=== PATIENT | female | born 1990 | race Two or more races ===

== ENCOUNTER → 2016-09-16 | Outpatient (CLI) | payer OTHER ==
--- NOTE | 2016-09-16 16:42 | RAD ---
Obstetrical ultrasound, 09/16/2016: History: Small for dates Transabdominal scans were obtained. There is a single intrauterine fetus in a breech orientation. The biparietal diameter measures 3.4 cm compatible with a gestational age of 16-17 weeks. The average gestational age based on all of the measurements is 16 weeks and 1 day yielding a sonographic EDC of 03/02/2017. This correlates well with the EDC of 03/05/2017 established on the original ultrasound exam of 07/18/2016. Normal activity and heart motion were seen. The heart rate is 155 bpm. No specific abnormality is detected. A normal amount of amniotic fluid is evident with GEORGIE calculated at 11.7. The placenta lies anteriorly and extends low near the cervical region. The cervix was not clearly delineated on today's scans. There is apparent myometrial thickening anteriorly in the lower uterine segment on several of these images. The senior nuclear medicine technologist did not recognize the presence of mass in this region during the scanning process. This may have been a transient uterine contraction. IMPRESSION: 1. Single viable uterine fetus of 16-17 weeks gestational age which has demonstrated normal interval growth since 03/05/2017. 2. Low-lying placenta. 3. Myometrial thickening anteriorly in the lower uterine segment suggesting a uterine contraction versus a possible fibroid. 4. Sonographic follow-up is suggested.
== END | disposition home or self-care (01) ==
LOC: US 10:11
PROVIDERS: ATTEND Obstetrics & Gynecology
DX: O36.5920 Maternal care for other known or suspected poor fetal growth, second trimester, not applicable or unspecified (principal); O44.42 Low lying placenta NOS or without hemorrhage, second trimester; Z3A.14 14 weeks gestation of pregnancy
CPT/HCPCS: 76805

== ENCOUNTER → 2016-10-22 | Outpatient (CLI) | payer OTHER ==
--- NOTE | 2016-10-22 15:57 | RAD ---
Obstetrical ultrasound, 10/22/2016: History: Pelvic pain, second trimester bleeding Transabdominal scans were obtained. There is a single intrauterine fetus in a cephalic orientation. The biparietal diameter measures 5 cm compatible with a gestational age of 21 weeks. The average gestational age based on all of the measurements is 21 weeks and 4 days showing a sonographic EDC of 02/28/2017. This correlates well with the EDC of 03/05/2017 established on the original ultrasound exam of 07/18/2016. Normal activity and heart motion were seen. The heart rate is 155 bpm. No specific abnormality is detected. The placenta lies anteriorly with no evidence of a placenta previa. No periplacental hemorrhage is seen. The cervix was not optimally defined but does not appear to be thinned. The patient refused transvaginal scanning. A normal amount of amniotic fluid is present with the amniotic fluid index measured at 16.7. IMPRESSION: Single viable intrauterine fetus of 21-22 weeks gestational age as described above, demonstrating normal interval growth since 07/18/2016.
== END | disposition home or self-care (01) ==
LOC: US 12:31
PROVIDERS: ATTEND Family Medicine
DX: R10.2 Pelvic and perineal pain (principal); O46.92 Antepartum hemorrhage, unspecified, second trimester
CPT/HCPCS: 76805

== ENCOUNTER → 2016-12-25 | Outpatient (CLI) | payer OTHER ==
--- NOTE | 2016-12-25 11:36 | RAD ---
Indication large for dates. Obstetrical ultrasound examination was performed. Note is made of a previous examination 2 months ago. There is a single viable IUP. heart rate 169 was documented. The current presentation is cephalic. The biparietal diameter of 7.7 cm, head circumference of 28 cm, abdominal circumference of 25.2 cm and femoral length of 6.2 cm are compatible with a gestational age of approximately 31 weeks. The current examination would suggest an expected date of confinement of 02/27/2017 which is in general agreement with the study 2 months ago. (EDC associated with that examination was 03/05/2017). The estimated weight is approximately 1600 g. The amount of amniotic fluid is normal and the calculated index is 12. The placenta is predominantly anterior. There was a 4 chambered heart. No definite anomalies were seen. The brain was not optimally visualized because of positioning. IMPRESSION: Single viable intrauterine fetus of approximately 31 weeks gestation.
== END | disposition home or self-care (01) ==
LOC: US 09:45
PROVIDERS: ATTEND Family Medicine
DX: P08.1 Other heavy for gestational age newborn (principal)
CPT/HCPCS: 76805

== ENCOUNTER 2017-01-27 18:26 | Inpatient (IN) | payer OTHER ==
[2017-01-27] MEDS ORDERED: fentaNYL PF VIAL 100 MCG/2 ML VIAL IV PRN (19:45)
[2017-01-27] MEDS ORDERED: 0.9 % SODIUM CHLORIDE 10 ML DISP.SYRIN. IV PRN (19:45)
[2017-01-27] MEDS ORDERED: IBUPROFEN 800 MG TABLET. PO PRN (19:45)
[2017-01-27] MEDS ORDERED: LIDOCAINE 1% PF 30 ML VIAL. INJ PRN (19:45)
[2017-01-27] MEDS ORDERED: IV RINGERS,LACTATED 1000ML 1,000 ML IV SCH (19:45)
[2017-01-27] MEDS ORDERED: OXYTOCIN 30 UNIT/500 ML PREMIX 500 ML IV PRN (19:45)
[2017-01-27 19:57] LABS: HEMATOCRIT 33.4 % (36.0-47.0); HEMOGLOBIN 10.9 g/dL (12.0-15.5); RED BLOOD COUNT 4.24 x10^6/uL (3.50-5.40); RED CELL DISTRIBUTION WIDTH 16.2 % (11.5-14.5); WHITE BLOOD COUNT 7.3 x10^3/uL (4.0-11.0)
[2017-01-27] MEDS ORDERED: AMPICILLIN SODIUM 2 GM in IV NORMAL SALINE 100ML 100 ML IV ONE (20:00)
[2017-01-27 20:40] LABS: NEG OBC AMNIO NEG; POS OBC AMNIO POS
[2017-01-28] MEDS ORDERED: AMPICILLIN SODIUM 1 GM in IV NORMAL SALINE 50ML 50 ML IV SCH (00:01)
[2017-02-23] MEDS ORDERED: OXYC-323 PO (10:52)
[2017-02-23] MEDS ORDERED: NAPR500T3 PO (10:52)
--- NOTE | 2017-03-14 16:43 | SSS ---
ADMIT DATE: 01/27/2017 CLINICAL COURSE: This patient is a 26-year-old female with EDC of 03/05/2017, seen on 01/27/2017 by OB floor with suspicion of ruptured membranes. The patient had no fluid noted by nursing staff and had negative Amnisure as well as a CBC showing no evidence of infection and mild anemia. She was deemed not to be on labor with no changes in cervical exam. The patient was discharged from floor per routine with nursing assessment documented and told to follow up in the clinic within 24-48 hours for continued care and evaluation. MASSIMO VICK MD DR: BENJI/leyla JOB#: [id number] / [id number]
== END 2017-01-27 21:24 | disposition home or self-care (01) | DRG 780 ==
LOC: 3 SO LND 18:26 → OBSVTOIN 18:26
PROVIDERS: ADMIT Family Medicine; ATTEND Family Medicine
DX: O47.03 False labor before 37 completed weeks of gestation, third trimester (principal); O46.93 Antepartum hemorrhage, unspecified, third trimester; Z3A.35 35 weeks gestation of pregnancy
CPT/HCPCS: 36415; 84112; 85027; 86850; 86900; 86901; C1887; J7120

== ENCOUNTER 2017-02-03 10:29 | Inpatient (IN) | payer OTHER ==
--- NOTE | 2017-02-03 12:17 | RAD ---
Indication:. Left-sided pain. Grayscale images of the abdomen were obtained. The examination is limited by virtue of patient body habitus. Comparison none Liver:There is some increased attenuation of the ultrasound beam by the liver compatible with fatty infiltration. A focal mass lesion is not seen and the visualized liver Gallbladder:There is cholelithiasis. No wall thickening is seen. The common bile duct diameter of 4 to 5 mm is within normal limits Spleen:Not optimally visualized but grossly normal Pancreas:The portion of the head and proximal body of the pancreas which is seen appears unremarkable. The entire body and tail were not seen. Kidneys:The right kidney is normal. No hydronephrosis or mass is seen. The left kidney contains a hypoechoic 2 cm mass in the inferior pole compatible with a cyst. No significant hydronephrosis is seen Abdominal aorta and IVC:With the most proximal abdominal aorta was seen. It appeared normal. The mid and distal abdominal aorta were obscured by gas. The visualized inferior vena cava appeared normal Ancillary findings:A viable intrauterine fetus was noted during the exam Impression:Fatty infiltration of the liver. Cholelithiasis. Incomplete visualization of midline structures Left renal cyst
[2017-02-23] MEDS ORDERED: NAPR500T3 PO (10:52)
[2017-02-23] MEDS ORDERED: OXYC-323 PO (10:52)
== END 2017-02-03 14:40 | disposition home or self-care (01) | DRG 781 ==
LOC: US 10:29 → 3 SO LND 11:20
PROVIDERS: ADMIT Family Medicine; ATTEND Family Medicine
DX: O26.613 Liver and biliary tract disorders in pregnancy, third trimester (principal); O26.833 Pregnancy related renal disease, third trimester; Q61.00 Congenital renal cyst, unspecified; O99.613 Diseases of the digestive system complicating pregnancy, third trimester; K76.0 Fatty (change of) liver, not elsewhere classified; Z3A.39 39 weeks gestation of pregnancy
CPT/HCPCS: 76700

== ENCOUNTER 2017-10-21 17:35 | Emergency (ER) | payer SELFPAY, OTHER ==
[2017-10-21] MEDS: IPRATRPIUM/ALBUTEROL 0.5/2.5MG 3 ML NEBU. NEB ×2 (17:51→18:20)
[2017-10-21] MEDS: predniSONE 10 MG TABLET PO (18:13)
== END 2017-10-21 18:58 | disposition home or self-care (01) ==
LOC: ER 17:35
DX: J45.901 Unspecified asthma with (acute) exacerbation (principal)
CPT/HCPCS: 94640; 99284-25; J7512; J7620

== ENCOUNTER 2018-10-26 08:16 | Emergency (ER) | payer BC ==
[~2018-10-26] VITALS: Ht 167.6 cm; Wt 140.6 kg
[~2018-10-26 08:16] MED LIST: ALBU2.5V8 INH; NAPR-514 PO; OXYC1TAB15 PO; PRED20TA PO
[2018-10-26 08:25] VITALS: BP 152/72
[2018-10-26] MEDS ORDERED: AMOX875T PO (08:55)
[2018-10-26] MEDS ORDERED: PRED50TA PO (08:55)
--- NOTE | 2018-10-26 08:55 | PHYS DOC ---
Past Medical History Past Medical History: Asthma, Depression Past Surgical History: Tubal ligation Alcohol Use: None Drug Use: None Adult General Chief Complaint Chief Complaint: SORE THROAT HPI HPI Patient is a 27 year old female who presents complaining of a sore throat and bilateral ear pain that began 5 days ago. Patient states she has tried over-the- counter remedies including Motrin with relief for fever but not for her symptoms. She is also complaining of a slight cough. Review of Systems Review of Systems Constitutional: Denies fever or chills [] Eyes: Denies change in visual acuity, redness, or eye pain [] HENT: reports sore throat and bilateral ear pain. Denies nasal congestion Respiratory: Reports cough, denies Shortness of breath [] Cardiovascular: No additional information not addressed in HPI [] GI: Denies abdominal pain, nausea, vomiting, bloody stools or diarrhea [] : Denies dysuria or hematuria [] Musculoskeletal: Denies back pain or joint pain [] Integument: Denies rash or skin lesions [] Neurologic: Denies headache, focal weakness or sensory changes [] All other systems were reviewed and found to be within normal limits, except as documented in this note. Allergies Allergies Allergies Coded Allergies Type Severity Reaction Last Updated Verified No Known Drug Allergies 02/22/17 No Physical Exam Physical Exam Constitutional: Well developed, well nourished, no acute distress, non-toxic appearance. [] HENT: Normocephalic, atraumatic, bilateral external ears normal, oropharynx moist, no oral exudates, nose normal. [] +3 tonsils with mild erythema, midline, no exudate. +2 anterior cervical adenopathy Bilateral TM are mildly injected Eyes: PERRLA, EOMI, conjunctiva normal, no discharge. [] Neck: Normal range of motion, no tenderness, supple, no stridor. [] Cardiovascular:Heart rate regular rhythm, no murmur [] Lungs & Thorax: Bilateral breath sounds clear to auscultation [] Abdomen: Bowel sounds normal, soft, no tenderness, no masses, no pulsatile masses. [] Skin: Warm, dry, no erythema, no rash. [] Back: No tenderness, no CVA tenderness. [] Extremities: No tenderness, no cyanosis, no clubbing, ROM intact, no edema. [] Neurologic: Alert and oriented X 3, normal motor function, normal sensory function, no focal deficits noted. [] Psychologic: Affect normal, judgement normal, mood normal. [] Current Patient Data Vital Signs Vital Signs Date Time Temp Pulse Resp B/P (MAP) Pulse Ox O2 Delivery O2 Flow Rate FiO2 10/26/18 08:25 98.3 98 20 152/72 (98) 100 Room Air 98.3 EKG EKG [] Radiology/Procedures Radiology/Procedures [] Course & Med Decision Making Course & Med Decision Making Pertinent Labs and Imaging studies reviewed. (See chart for details) Patient has otitis media and pharyngitis episodes of fevers. Discharged with amoxicillin. Tylenol/ Motrin for pain, gargles recommended. Follow-up with PCP in 1-2 weeks. Dragon Disclaimer Dragon Disclaimer This electronic medical record was generated, in whole or in part, using a voice recognition dictation system. Departure Departure Impression: Primary Impression: Otitis media Additional Impressions: Pharyngitis, acute Fever Cough Disposition: HOME, SELF-CARE Condition: STABLE Referrals: MASSIMO VICK MD (PCP) follow up in 1 week Patient Instructions: Fever, Adult, Otitis Media, Adult, Viral and Bacterial Pharyngitis Additional Instructions: You have ear infection and throat infection. Please take Tylenol or Motrin for pain or fever. Complete your antibiotics. Use saltwater gargles also. Follow-up with your doctor next week. Come back to the ED at any point symptoms worsen. Scripts Prednisone (PREDNISONE) 50 Mg Tablet 1 TAB PO DAILY, #5 TAB Prov: KATHY PATIÑO APRN 10/26/18 Amoxicillin (AMOXICILLIN) 875 Mg Tablet 1 TAB PO BID, #20 TAB Prov: KATHY PATIÑO APRN 10/26/18 Problem Qualifiers Primary Impression: Otitis media Otitis media type: other nonsuppurative Chronicity: acute Laterality: bilateral Recurrence: non-recurrent Qualified Codes: H65.193 - Other acute nonsuppurative otitis media, bilateral Additional Impressions: Pharyngitis, acute Pharyngitis/tonsillitis etiology: unspecified etiology Qualified Codes: J02.9 - Acute pharyngitis, unspecified Fever Fever type: unspecified Qualified Codes: R50.9 - Fever, unspecified KATHY PATIÑO APRN Oct 26, 2018 08:55
== END 2018-10-26 09:41 | disposition home or self-care (01) ==
LOC: ER 08:16
DX: H66.93 Otitis media, unspecified, bilateral (principal); J02.9 Acute pharyngitis, unspecified; R50.9 Fever, unspecified; R05 Cough; J45.909 Unspecified asthma, uncomplicated; F32.9 Major depressive disorder, single episode, unspecified; Z98.51 Tubal ligation status
CPT/HCPCS: 99283

== ENCOUNTER 2019-04-16 08:18 | Observation (INO) | payer BC ==
[~2019-04-16] VITALS: Ht 167.6 cm; Wt 154.5 kg
[2019-04-16] VITALS (9 sets, daily range): BP systolic 113–144; BP diastolic 55–90
[2019-04-16] MEDS: IV RINGERS,LACTATED 1000ML 1,000 ML IV SCH ×4 (07:00→17:19)
[~2019-04-16 08:18] MED LIST changes: +ACETAMINOPHEN 500 MG TABLET PO ONE; +AMOX875T PO; +BUPIVACAINE-EPI 0.25%-1:200000 MPF 30 ML VIAL. INJ ONE; +HYDROmorphone 2 MG/ML VIAL IV PRN; +IBUP200T44 PO; +LIDOCAINE 1% PF 2 ML VIAL. ID PRN; +MORPHINE SULFATE 2 MG/ML VIAL. IV PRN; +ONDANSETRON PF 4 MG/2 ML VIAL. IV PRN; +PRED50TA PO; +TRAM50TA PO; +ceFAZolin SODIUM 3 GM in IV DEXTROSE 5% 100ML 100 ML IV PRN; +fentaNYL PF VIAL 100 MCG/2 ML VIAL IV PRN
[2019-04-16] MEDS ORDERED: DEXAMETHASONE SOD PHOS 20 MG/5 ML VIAL. ONE (08:38)
[2019-04-16] MEDS ORDERED: LIDOCAINE 2% PF 5 ML VIAL. ONE (08:38)
[2019-04-16] MEDS ORDERED: PROPOFOL 20 ML IV ONE ×2 (08:38→10:27)
[2019-04-16] MEDS ORDERED: ONDANSETRON PF 4 MG/2 ML VIAL. ONE (08:39)
[2019-04-16] MEDS ORDERED: FAMOTIDINE 20 MG/2 ML VIAL ONE (08:39)
[2019-04-16] MEDS ORDERED: ROCURONIUM 50 MG/5 ML VIAL. ONE (08:41)
[2019-04-16] MEDS ORDERED: fentaNYL PF VIAL 250 MCG/5 ML VIAL ONE (08:42)
[2019-04-16] MEDS ORDERED: MIDAZOLAM HCL/PF 2 MG/2 ML VIAL. ONE (08:42)
[2019-04-16] MEDS ORDERED: KETOROLAC 30 MG/ML VIAL. ONE (10:18)
[2019-04-16] MEDS ORDERED: NEOSTIGMINE METHYLSULFATE 5 MG/5 ML SYRINGE. ONE (10:44)
[2019-04-16] MEDS ORDERED: GLYCOPYRROLATE 1 MG/5 ML VIAL. ONE (10:44)
--- NOTE | 2019-04-16 10:53 | PDOC4 ---
Operative Note Operative Note Date: 04/16/2019 Preoperative diagnosis: Symptomatic cholelithiasis Postoperative diagnosis: Same Procedure: Laparoscopic cholecystectomy Surgeon: Martín Specimen: Gallbladder Dictation: Patient is a 28-year-old female is had right upper quadrant abdominal pain postprandial nausea and ultrasound showing gallstones. The procedure of laparoscopic cholecystectomy was explained to the patient in detail risks benefits were also discussed including bleeding infection injury to intra- abdominal contents possibly necessitating further or open operations alternatives to this procedure also discussed with the patient who seemed to understand and gave both verbal and written consent to have the procedure perfo rmed. Patient was taken to the operating room placed in supine position general anesthesia was initiated once patient was sleep and intubated her abdomen was prepped and draped usual sterile fashion using ChloraPrep. An area just below the umbilicus was injected with quarter percent Marcaine with epinephrine incision was made with the 11 blade scalpel. Veress needle was used to access the abdomen and provide a pneumoperitoneum once this complete 11mm port was placed and a 5 mm a camera was placed within the abdomen which was inspected no other abdomen maladies were noted other than very large liver. 5 mm port was placed in the epigastrium one in the right upper quadrant and one in the right lateral abdomen. The dome of the of the gallbladder was grasped retracted cephalad infundibulum gallbladder is grasped tract laterally exposing the triangle adherent tissues the drug were taken down exposing the cystic duct and cystic artery both were doubly clipped and transected the gallbladder was taken off the liver Thora-Klex cautery placed in Endo Catch bag and removed from the umbilicus right upper quadrant was irrigated and suctioned dry there is a fair amount of oozing from the gallbladder fossa so Aristra was used in the gallbladder fossa. Pneumoperitoneum was reduced all ports removed the fascial defect at the umbilicus closed [id number] Vicryl suture and the skin was approximate all port sites for septic and a Monocryl Mastisol Steri-Strips and island dressings were applied. Patient was awakened and a straight in the operating room taken to recovery in stable condition all sponge instrument needle counts listed as correct estimated blood loss 30 mL YOHANNES TOWNSEND MD Apr 16, 2019 10:52
--- NOTE | 2019-04-16 10:54 | DISCH ---
DISCHARGE INSTRUCTIONS Condition on Discharge Condition on Discharge: Stable Activity After Discharge Activity Instructions for Disc: Avoid exertion Other activity instructions: no lifting more than 20 pounds for 2 weeks Diet after Discharge Diet after Discharge: Low Fat Diet Texture: Regular Wound Incision Care Other wound/incision instructi: May shower in 24 hours Contacting the DRRobb after DC Call your doctor for: If your condition worsens Follow-Up Follow up with: Dr. Townsend in 2 weeks Treatment/Equipment after DC Adaptive Equipment Issued: None YOHANNES TOWNSEND MD Apr 16, 2019 10:54
[2019-04-16] MEDS ORDERED: OXYC-325 PO (11:08)
[2019-04-16] MEDS ORDERED: oxyCODONE/APAP 5/325 1 TAB TABLET PO ONE ×2 (11:15)
[2019-04-16] MEDS: PROCHLORPERAZINE 10 MG/2 ML VIAL. IV PRN ×2 (11:51→12:16)
[2019-04-16] MEDS: fentaNYL PF VIAL 100 MCG/2 ML VIAL IV PRN ×4 (12:17→14:41)
[2019-04-16] MEDS ORDERED: ONDANSETRON PF 4 MG/2 ML VIAL. IV PRN (14:00)
[2019-04-16] MEDS ORDERED: 0.9 % SODIUM CHLORIDE 10 ML DISP.SYRIN. IV PRN (14:00)
[2019-04-16] MEDS ORDERED: oxyCODONE/APAP 5/325 1 TAB TABLET PO PRN (14:00)
[2019-04-16] MEDS: KETOROLAC 15 MG/ML VIAL. IV SCH ×2 (17:20→23:57)
[2019-04-16] MEDS: BENZOCAINE/MENTHOL LOZENGE. PO PRN ×2 (20:31→23:57)
[2019-04-17 03:00] VITALS: BP 112/56
[2019-04-17] MEDS: oxyCODONE/APAP 5/325 1 TAB TABLET PO PRN ×2 (03:17→08:22)
[2019-04-17] MEDS: KETOROLAC 15 MG/ML VIAL. IV SCH (05:54)
[2019-04-17 07:00] VITALS: BP 128/71
--- NOTE | 2019-04-17 09:12 | PDOC ---
SURGICAL PROGRESS NOTE Subjective Patient states her pain is much better than yesterday would like to go home. Tolerated diet this morning Vital Signs Vital Signs Date Time Temp Pulse Resp B/P (MAP) Pulse Ox O2 Delivery O2 Flow Rate FiO2 04/17/19 08:22 Room Air 04/17/19 07:00 97.6 78 14 128/71 (90) 98 97.6 04/16/19 13:54 2 I&O Intake and Output 04/17/19 07:00 Intake Total 2320 ml Output Total 30 ml Balance 2290 ml Intake Oral 220 ml IV Total 2100 ml Output Estimated Blood Loss 30 ml # Voids 4 PATIENT HAS A DOAN: No General: Alert, Oriented X3, Cooperative, mild distress Abdomen: Normal bowel sounds, Soft, Other (mild incisional tenderness wounds clean dry and intact) Labs Laboratory Tests Test 04/16/19 08:56 Bedside Urine HCG, Qualitative Hcg negative (Negative) Assessment/Plan Status post laparoscopic cholecystectomy Discharge home YOHANNES TOWNSEND MD Apr 17, 2019 09:12
--- NOTE | 2019-04-17 09:18 | PDOC3 ---
Discharge Summary Visit Information Date of Admission: Apr 16, 2019 Date of Discharge: Apr 17, 2019 Admitting Diagnosis Comment: Symptomatic cholelithiasis Final Diagnosis Symptomatic cholelithiasis Brief Hospital Course Allergies Allergies Coded Allergies Type Severity Reaction Last Updated Verified shellfish derived Allergy Severe RASH ALL OVER AND TONGUE GOT HEAVY 04/16/19 Yes Vital Signs Vital Signs Date Time Temp Pulse Resp B/P (MAP) Pulse Ox O2 Delivery O2 Flow Rate FiO2 04/17/19 08:22 Room Air 04/17/19 07:00 97.6 78 14 128/71 (90) 98 97.6 04/16/19 13:54 2 Lab Results Laboratory Tests Test 04/16/19 08:56 Bedside Urine HCG, Qualitative Hcg negative (Negative) Brief Hospital Course 28-year-old female was admitted to the hospital for laparoscopic cholecystectomy postoperatively she had quite a bit of pain difficult control she she was w atched and monitored overnight pain is been better controlled and she tolerated regular breakfast this morning is wishing to go home. She is being discharged home in stable condition Discharge Information Condition at Discharge: Improved Follow Up: Weeks Disposition/Orders: D/C to Home Scheduled PRN Ibuprofen (Motrin Ib), 600 MG PO Q6H PRN for PAIN, (Reported) Oxycodone HCl/Acetaminophen (Percocet 5-325 mg Tablet), 1-2 EACH PO PRN Q4HRS PRN for PAIN, (Reported) Tramadol Hcl (Tramadol Hcl), 50 MG PO Q6HRS PRN for PAIN Patient Instructions Patient Instructions Patient follow-up with Dr. Townsend in 2 weeks no lifting more than 20 pounds for 2 weeks and low fat diet for 2 weeks YOHANNES TOWNSEND MD Apr 17, 2019 09:18
[2019-04-17] MEDS: IV RINGERS,LACTATED 1000ML 1,000 ML IV SCH (10:00)
[2019-04-17 10:40] VITALS: BP 125/71
--- NOTE | 2019-04-17 10:42 | NUR ---
Pt. discharged to home with Rx, instructions given in Albanian per WILMER Marmolejo. Pt and verbalized understanding of discharge instructions. [facility] sites x4 CDI.
--- NOTE | 2019-04-20 11:07 | PATHOLOGY ---
[facility] Accession Number: [id number] . 01 Material submitted: . gallbladder - GALLBLADDER . 01 Clinical history: . Cholecystitis . 02 Diagnosis: Gallbladder, cholecystectomy: - Chronic calculus cholecystitis. (MAP:[facility]; 04/19/2019) [facility] 04/19/2019 [facility] . 02 Electronically signed: . Milad De Paz MD, Pathologist NPI- [id number] . 01 Gross description: . The specimen is received in formalin, labeled "Mary Jane Brizuela, gallbladder". Received is an intact gallbladder measuring 10.2 x 2.6 x 2.5 cm in greatest dimensions displaying a pink-freeman serosal surface. Opening the specimen reveals a velvety, pale neil mucosa with a gallbladder wall thickness of up to 0.2 cm. The lumen of the gallbladder is filled with thick, viscous, cloudy mucoid material. Calculi are present displaying a yellow-neil and nodular appearance, and no masses or lesions are noted grossly. Senior Production Manager sections, to include the proximal margin, are submitted in cassette A1. ([facility]; 04/18/2019) QA/[facility] 04/18/2019 [facility] Local . 02 Pathologist provided ICD-10: K81.1 . 02 CPT . 917534 Specimen Comment: A courtesy copy of this report has been sent to Specimen Comment: [phone], . Specimen Comment: Report sent to / DR VICK Performed at: 01 [facility] [address], [place], [place] [id number] MD Yfn Kessler MD Phone: [phone] Performed at: 02 [facility] [id number] [place] [address], [place], [place] [id number] MD Neris Larson MD Phone: [phone]
== END 2019-04-17 10:54 | disposition home or self-care (01) ==
LOC: SURG 08:18 → 4 NORTH 13:48
PROVIDERS: ADMIT Surgery; ATTEND Surgery
DX: K80.20 Calculus of gallbladder without cholecystitis without obstruction (principal); E66.01 Morbid (severe) obesity due to excess calories; J45.909 Unspecified asthma, uncomplicated; I10 Essential (primary) hypertension; Z98.890 Other specified postprocedural states
CPT/HCPCS: 47562; 81025; 88304; 96374; 96376; A7015; G0378; G0379; J0780; J1100; J1885; J2001; J2250; J2405; J2704; J2710; J3010; J3490; J7030; J7120

== ENCOUNTER 2021-01-29 09:33 | Emergency (ER) | payer SELFPAY ==
[~2021-01-29] VITALS: Ht 167.6 cm; Wt 140.9 kg
[~2021-01-29 09:33] MED LIST changes: -ACETAMINOPHEN 500 MG TABLET PO ONE; -BUPIVACAINE-EPI 0.25%-1:200000 MPF 30 ML VIAL. INJ ONE; -HYDROmorphone 2 MG/ML VIAL IV PRN; -LIDOCAINE 1% PF 2 ML VIAL. ID PRN; -MORPHINE SULFATE 2 MG/ML VIAL. IV PRN; -ONDANSETRON PF 4 MG/2 ML VIAL. IV PRN; +OXYC-325 PO; -ceFAZolin SODIUM 3 GM in IV DEXTROSE 5% 100ML 100 ML IV PRN; -fentaNYL PF VIAL 100 MCG/2 ML VIAL IV PRN
[2021-01-29 10:00] VITALS: BP 150/80
[2021-01-29 10:37] LABS: BILIRUBIN,URINE NEGATIVE (NEG); CLARITY,URINE CLEAR; COLOR,URINE YELLOW; NITRITE,URINE NEGATIVE (NEG); PH,URINE 6.5 (<5.0-8.0); PROTEIN,URINE NEGATIVE (NEG-TRACE); UROBILINOGEN,URINE 0.2 mg/dL (0.2 mg/dL)
[2021-01-29 10:43] LABS: BACTERIA,URINE FEW /HPF (0-FEW)
[2021-01-29 10:44] LABS: RBC,URINE 0 /HPF (0-2); WBC,URINE OCC /HPF (0-4)
--- NOTE | 2021-01-29 10:47 | ED.ADGEN ---
Past Medical History Past Medical History: Asthma, Depression Past Surgical History: Cholecystectomy, Tubal ligation Smoking Status: Never Smoker Alcohol Use: None Drug Use: None General Adult EDM: Chief Complaint: LOWER BACK PAIN OR INJURY HPI: HPI: Patient is a 30 year old female, who presents emergency department with complaints of low back pain that is worse with movement for the last 4 days. She denies any injury or fall. Patient states she lifts heavy things at work. She denies any numbness, tingling, saddle anesthesia, or loss of bowel/bladder control. Patient denies any dysuria, hematuria, increased urinary frequency, or difficulty voiding. She denies any fever, cough, shortness of breath, abdominal pain, nausea, vomiting, or diarrhea. Patient denies any radiation of the pain to her legs. She currently rates pain a 10 out of 10 on the pain , She denies any alleviating factors. Review of Systems: Review of Systems: Complete ROS is negative unless otherwise noted in HPI. Allergies: Allergies: Allergies Coded Allergies Type Severity Reaction Last Updated Verified shellfish derived Allergy Severe RASH ALL OVER AND TONGUE GOT HEAVY 04/16/19 Yes Physical Exam: PE: See Above Constitutional: Well developed, well nourished, no acute distress, non-toxic appearance, obese. [] HENT: Normocephalic, atraumatic, bilateral external ears normal, nose normal. [] Eyes: PERRLA, EOMI, conjunctiva normal, no discharge. [] Neck: Normal range of motion, no stridor. [] Cardiovascular:Heart rate regular rhythm Lungs & Thorax: Respirations even and unlabored, no retractions, no respiratory distress Abdomen: soft, no tenderness Back: No bony tenderness, no crepitus, no deformity, bilateral lumbar paraspinal tenderness to palpation, no increased pain with bilateral straight leg lift Skin: Warm, dry, no erythema, no rash. [] Extremities: No cyanosis, ROM intact, no edema. [] Neurologic: Alert and oriented X 3, normal motor, normal sensory, no focal deficits noted. [] Psychologic: Affect normal, judgement normal, mood normal. [] Current Patient Data: Labs: Laboratory Tests Test 01/29/21 09:50 01/29/21 09:59 Urine Collection Type Unknown Urine Color Yellow Urine Clarity Clear Urine pH 6.5 (<5.0-8.0) Urine Specific [place] 1.020 (1.000-1.030) Urine Protein Negative mg/dL (NEG-TRACE) Urine Glucose (UA) Negative mg/dL (NEG) Urine Ketones (Stick) Negative mg/dL (NEG) Urine Blood Negative (NEG) Urine Nitrite Negative (NEG) Urine Bilirubin Negative (NEG) Urine Urobilinogen Dipstick 0.2 mg/dL (0.2 mg/dL) Urine Leukocyte Esterase Negative (NEG) Urine RBC 0 /HPF (0-2) Urine WBC Occ /HPF (0-4) Urine Squamous Epithelial Cells Few /LPF Urine Bacteria Few /HPF (0-FEW) Urine Mucus Slight /LPF POC Urine HCG, Qualitative Hcg negative (Negative) Vital Signs: Vital Signs Date Time Temp Pulse Resp B/P (MAP) Pulse Ox O2 Delivery O2 Flow Rate FiO2 01/29/21 10:00 92 20 150/80 (103) 97 Room Air 01/29/21 09:35 98.1 98.1 EKG: EKG: [] Heart Score: C/O Chest Pain: No Risk Scores: Score 0 - 3: 2.5% MACE over next 6 weeks - Discharge Home Score 4 - 6: 20.3% MACE over next 6 weeks - Admit for Clinical Observation Score 7 - 10: 72.7% MACE over next 6 weeks - Early Invasive Strategies Radiology/Procedures: Radiology/Procedures: [] Course & Med Decision Making: Course & Med Decision Making Pertinent Labs and Imaging studies reviewed. (See chart for details) 30-year-old female presents emergency department complaints of low back pain for 4 days. UA is unremarkable. Patient was Cymra[place]-speaking only therefore the [employer] gamemaster line was used to communicate with patient. Will prescribe naproxen and Flexeril. Encouraged patient to follow-up with her primary care doctor in the next 1 to 2 days, return to the ER if symptoms worsen or fever develops. Patient verbalized an understanding of home care, medications, follow-up, and return to ED instructions and was in agreement with the plan of care. [] Dragon Disclaimer: Dragon Disclaimer: This electronic medical record was generated, in whole or in part, using a voice recognition dictation system. Departure Departure Impression: Primary Impression: Acute bilateral low back pain without sciatica Disposition: HOME / SELF CARE / HOMELESS Condition: STABLE Referrals: MASSIMO VICK MD (PCP) Patient Instructions: Low Back Strain with Rehab[facility] Additional Instructions: Fill the prescription(s) and use as directed. Apply heat or ice for to sore areas as needed for comfort. Activity as tolerated. Follow up with your primary care doctor this week if symptoms persist, return to the ER if symptoms worsen or you develop a fever. Scripts Cyclobenzaprine Hcl (CYCLOBENZAPRINE HCL) 10 Mg Tablet 1 TAB PO TID PRN for MUSCLE PAIN for 10 Days, #30 TAB 0 Refills Prov: MARTHA HOFF APRN 01/29/21 Naproxen (NAPROXEN) 500 Mg Tablet 1 TAB PO BID PRN for PAIN for 10 Days, #20 TAB 0 Refills Prov: MARTHA HOFF APRN 01/29/21 MARTHA HOFF APRN Jan 29, 2021 10:47
[2021-01-29] MEDS ORDERED: NAPR-514 PO (11:09)
[2021-01-29] MEDS ORDERED: CYCL10TA2 PO (11:09)
== END 2021-01-29 11:45 | disposition home or self-care (01) ==
LOC: ER 09:33
DX: M54.5 Low back pain (principal); J45.909 Unspecified asthma, uncomplicated; F32.9 Major depressive disorder, single episode, unspecified; Z90.49 Acquired absence of other specified parts of digestive tract; Z98.51 Tubal ligation status; Z91.013 Allergy to seafood
CPT/HCPCS: 81001; 81025; 99283